=== PATIENT | female | born 1985 | race Caucasian/White ===

== ENCOUNTER 2018-02-02 09:36 | Inpatient (IN) | payer OTHER ==
[~2018-02-02] VITALS: Ht 152.4 cm; Wt 59.1 kg
[2018-02-02] VITALS (18 sets, daily range): BP systolic 102–126; BP diastolic 55–89; PULSE 62–109; TEMP 98.2–98.8
[2018-02-02] MEDS ORDERED: PRENATAL 191 CTB PO (10:04)
[2018-02-02] MEDS ORDERED: ZANTAC 150MG T150 MG PO (10:05)
[2018-02-02 11:25] LABS: BASO # 0.1 (0.0-0.2); BASO % 0.8 % (0.0-2.0); EOS # 0.2 (0.0-0.7); EOS % 2.4 % (0-4.0); GRAN # 5.6 (1.4-6.5); GRAN % 70.3 % (42.2-75.2); HEMATOCRIT 36.5 % (37.0-47.0); HEMOGLOBIN 12.8 g/dl (12.5-16.0); LYMPH # 1.7 (1.2-3.4); LYMPH % 21.6 % (20.0-51.0); MEAN CELL VOLUME 87 fl (80.0-100.0); MEAN CORPUSCULAR HEMOGLOBIN 31 pg (27.0-31.0); MEAN CORPUSCULAR HGB CONC 35 g/dl (33.0-37.0); MONO # 0.4 (0.1-0.6); MONO % 4.6 % (1.7-9.3); PLATELET COUNT 178 K/mm3 (130-400); RED BLOOD COUNT 4.18 M/mm3 (4.10-5.30); REDCELL DISTRIBUTION WIDTH-CV 12.5 % (11.5-14.5)
[2018-02-02] MEDS ORDERED: MOTRIN 800800 MG/TAB PO (14:13)
[2018-02-03 04:35] VITALS: BP 107/66; PULSE 66; TEMP 97.3
[2018-02-03 07:25] VITALS: BP 117/71; PULSE 66; TEMP 97.5
[2018-02-03] MEDS ORDERED: IBU800 M1 PO (08:18)
== END 2018-02-03 15:25 | disposition home or self-care (01) | DRG 775 ==
LOC: LDRO 09:36 → LDR 11:57 → OB 15:05
PROVIDERS: Obstetrics & Gynecology
PROC: 10E0XZZ Delivery of Products of Conception, External Approach (ICD-10-PCS; principal; 2018-02-02)
PROC: 0UQMXZZ Repair Vulva, External Approach (ICD-10-PCS; 2018-02-02)
DX: O99.62 Diseases of the digestive system complicating childbirth (principal); K21.9 Gastro-esophageal reflux disease without esophagitis; O99.02 Anemia complicating childbirth; Z3A.38 38 weeks gestation of pregnancy; Z37.0 Single live birth; O70.0 First degree perineal laceration during delivery
CPT/HCPCS: J2590; J7120